=== PATIENT | male | born 1950 | race Caucasian/White ===

== ENCOUNTER → 2020-11-27 | Outpatient (CLI) | payer MEDICARE, OTHER ==
[~2020-11-27] MED LIST: ATORVASTATIN CA40 MG PO; CALCIUM 600 +1 EAC7 PO; ECOTRIN81 MG PO; FOLIC ACID 1 MG1 MG PO; FUROSEMIDE20 MG PO; IMDUR ER TAB 3030 MG PO; IMDUR ER TAB 6060 MG PO; LIPITOR TAB 2020 MG PO; LISINOPRIL30 MG PO; MIRALAX17 GM PO; NIFEDIPINE ER30 MG PO; NITROGLYCERIN0.4 MG SL; NITROSTAT0.4 MG SL; NORVASC 5 MG TAB5 MG PO; PRINIVIL10 MG PO; PROSCAR 5 MG TAB5 MG PO; PROTONIX20 MG PO; PROTONIX40 MG PO; SPIRONOLACTONE25 MG PO; TAMSULOSIN HCL0.4 MG PO
== END ==
LOC: LAB 10:54
DX: D89.89 Other specified disorders involving the immune mechanism, not elsewhere classified (principal); M25.50 Pain in unspecified joint
CPT/HCPCS: 36415

== ENCOUNTER → 2021-06-17 | Outpatient (CLI) | payer MEDICARE, OTHER | LOC: HEART 5 07:48 | DX: R00.1 Bradycardia, unspecified (principal); R00.2 Palpitations ==

== ENCOUNTER → 2021-07-07 | Outpatient (CLI) | payer MEDICARE, OTHER | LOC: KOH-I 07-06 08:00 | DX: Z13.6 Encounter for screening for cardiovascular disorders (principal); Z00.00 Encounter for general adult medical examination without abnormal findings; Z87.891 Personal history of nicotine dependence | CPT/HCPCS: 76706-PO ==

== ENCOUNTER → 2021-12-21 | Outpatient (CLI) | payer MEDICARE, OTHER | LOC: LAB 11:28 | PROVIDERS: Internal Medicine Nephrology | DX: N04.1 Nephrotic syndrome with focal and segmental glomerular lesions (principal) | CPT/HCPCS: 36415; 80048 ==

== ENCOUNTER → 2022-02-19 | Outpatient (CLI) | payer MEDICARE, OTHER | LOC: LAB 14:46 | PROVIDERS: Internal Medicine Nephrology | DX: N04.1 Nephrotic syndrome with focal and segmental glomerular lesions (principal) | CPT/HCPCS: 36415; 80048 ==